=== PATIENT | female | born 1950 | race Hispanic/Latino ===

== ENCOUNTER 2024-10-07 07:35 | Day surgery (SDC) | payer MEDICARE ==
[2024-10-07] VITALS (10 sets, daily range): BP systolic 125–150; BP diastolic 50–72; PULSE 74–88; RESP 14–16; TEMP 97–98.9
[~2024-10-07] VITALS: Ht 165.1 cm; Wt 72.1 kg
[2024-10-07] MEDS ORDERED: METF-444 PO (08:48)
[2024-10-07] MEDS ORDERED: LEVO5TAB13 PO (08:48)
[2024-10-07] MEDS ORDERED: ASPI-1005 PO (08:48)
[2024-10-07] MEDS ORDERED: DULO60CA64 PO (08:48)
[2024-10-07] MEDS ORDERED: LOSA50TA64 PO (08:48)
[2024-10-07] MEDS ORDERED: AMIT25TA21 PO (08:48)
[2024-10-07] MEDS ORDERED: FOLI0.8C PO (08:48)
[2024-10-07] MEDS ORDERED: VIBE75TA PO (08:48)
[2024-10-07] MEDS ORDERED: GABA300C PO (08:48)
[2024-10-07] MEDS ORDERED: ATOR10 PO (08:48)
[2024-10-07] MEDS: 0.9%NACL 1000ML 1,000 ML IV ONE (09:00)
[2024-10-07] MEDS: DEXTROSE 50%-WATER 50 ML DISP.SYRIN IV ONE (09:04)
== END 2024-10-07 12:25 | disposition home or self-care (01) ==
LOC: ENDO 07:35 → DAH 07:35 → ENDO 12:25
PROVIDERS: ATTEND Internal Medicine
DX: K59.01 Slow transit constipation (principal); D12.3 Benign neoplasm of transverse colon; K64.8 Other hemorrhoids; I10 Essential (primary) hypertension; F41.9 Anxiety disorder, unspecified; F32.A Depression, unspecified; E11.9 Type 2 diabetes mellitus without complications; M19.90 Unspecified osteoarthritis, unspecified site; Z90.710 Acquired absence of both cervix and uterus; Z90.89 Acquired absence of other organs; Z90.49 Acquired absence of other specified parts of digestive tract; Z98.890 Other specified postprocedural states; Z79.899 Other long term (current) drug therapy
CPT/HCPCS: 45385; 82948 ×3; J7030; J7070; J2704; A4620; A4215; J3490